=== PATIENT | female | born 1990 | race Caucasian/White ===

== ENCOUNTER 2018-09-16 08:02 | Emergency (ER) | payer OTHER ==
[~2018-09-16] VITALS: Ht 157.5 cm; Wt 72.7 kg
[2018-09-16] MEDS ORDERED: PREN-18 PO (08:09)
[2018-09-16 09:20] VITALS: BP 170/77
== END 2018-09-16 09:15 | disposition home or self-care (01) ==
LOC: EMS 08:04
DX: O26.891 Other specified pregnancy related conditions, first trimester (principal); L03.031 Cellulitis of right toe; Z3A.13 13 weeks gestation of pregnancy

== ENCOUNTER 2019-02-14 09:40 | Observation (INO) | payer OTHER ==
[~2019-02-14] VITALS: Ht 154.9 cm; Wt 82.6 kg
[~2019-02-14 09:40] MED LIST: PREN-18 PO
[2019-02-14 12:04] VITALS: BP 109/68
== END 2019-02-14 12:20 | disposition home or self-care (01) ==
LOC: 4S 09:40
PROVIDERS: ADMIT Obstetrics & Gynecology; ATTEND Obstetrics & Gynecology
DX: O26.893 Other specified pregnancy related conditions, third trimester (principal); R10.30 Lower abdominal pain, unspecified; Z3A.37 37 weeks gestation of pregnancy

== ENCOUNTER 2019-02-26 11:03 | Observation (INO) | payer OTHER ==
[~2019-02-26] VITALS: Ht 157.5 cm; Wt 81.6 kg
[2019-02-26 12:23] VITALS: BP 116/73
== END 2019-02-26 12:30 | disposition home or self-care (01) ==
LOC: 4S 11:03
PROVIDERS: ADMIT Obstetrics & Gynecology; ATTEND Obstetrics & Gynecology
DX: O36.8130 Decreased fetal movements, third trimester, not applicable or unspecified (principal); O48.0 Post-term pregnancy; Z3A.40 40 weeks gestation of pregnancy

== ENCOUNTER 2019-03-01 05:22 | Inpatient (IN) | payer OTHER ==
[~2019-03-01] VITALS: Ht 154.9 cm; Wt 82.6 kg
[2019-03-01 06:26] VITALS: BP 121/72
[2019-03-01] MEDS ORDERED: RINGERS SOLUTION,LACTATED 1,000 ML IV PRN (07:11)
[2019-03-01] MEDS ORDERED: OXYTOCIN 30 UNITS/LACT RINGERS 500 ML IV PRN (07:11)
[2019-03-01] MEDS ORDERED: RINGERS SOLUTION,LACTATED 1,000 ML IV SCH (07:11)
[2019-03-01] MEDS ORDERED: OXYTOCIN 30 UNITS/LACT RINGERS 500 ML IV ONE ×2 (07:11→10:31)
[2019-03-01] MEDS ORDERED: METOCLOPRAMIDE HCL 5 MG/ML 2 ML VIAL IVP PRN (07:15)
[2019-03-01] MEDS ORDERED: CITRIC ACID/SODIUM CITRATE 30 ML SOLUTION UDCUP PO PRN (07:15)
[2019-03-01 07:54] LABS: BASOPHILS % (AUTO) 0.3 % (0.0-2.0); HEMATOCRIT 40.6 % (36-46); HEMOGLOBIN 14.3 g/dL (12.0-16.0); LYMPHOCYTES # (AUTO) 2.1 K/uL (1.0-4.8); LYMPHOCYTES % (AUTO) 22.5 % (22.0-44.0); MEAN CORPUSCULAR HEMOGLOBIN 33.8 pg (26.0-34.0); MEAN CORPUSCULAR HGB CONC 35.3 G/dL (31.0-37.0); MEAN CORPUSCULAR VOLUME 96 fL (80-100); MONOCYTES # (AUTO) 0.9 K/uL (0.1-1.0); MONOCYTES % (AUTO) 9.3 % (2.0-9.0); NEUTROPHILS # (AUTO) 6.2 K/uL (1.8-7.7); NEUTROPHILS % (AUTO) 66.9 % (40.0-70.0); PLATELET COUNT (AUTO)-OB 123 K/uL (150-450); RED BLOOD CELL COUNT(AUTO) 4.23 MIL/uL (4.00-5.20); RED CELL DISTRIBUTION WIDTH 15.7 % (11.5-14.5)
[2019-03-01] MEDS ORDERED: OXYGEN THERAPY IH SCH (08:00)
[2019-03-01] MEDS ORDERED: LANOLIN 7 GM OINTMENT TP PRN (10:45)
[2019-03-01] MEDS ORDERED: MAGNESIUM HYDROXIDE SUSPENSION 30 ML UDCUP PO PRN (10:45)
[2019-03-01] MEDS ORDERED: BENZOCAINE 20%/MENTHOL 56 GM SPRAY CANISTER TP PRN (10:45)
[2019-03-01] MEDS ORDERED: OxyCODONE HCL/ACETAMINOPHEN 5-325 MG TABLET PO PRN ×2 (10:45)
[2019-03-01] MEDS ORDERED: GLYCERIN/WITCH HAZEL LEAF 40 PADS JAR TP PRN (10:45)
[2019-03-01] MEDS ORDERED: LIDOCAINE/PF 1% 30 ML VIAL INJ PRN (10:45)
[2019-03-01] MEDS ORDERED: MISOPROSTOL 100 MCG TABLET PR ONE (11:00)
[2019-03-01] MEDS: IBUPROFEN 800 MG TABLET PO PRN ×2 (11:22→21:18)
[2019-03-01] MEDS ORDERED: IBUP-2071 PO (16:20)
[2019-03-02] MEDS: IBUPROFEN 800 MG TABLET PO PRN (05:33)
[2019-03-02 05:38] LABS: BASOPHILS % (AUTO) 0.2 % (0.0-2.0); EOSINOPHILS % (AUTO) 0.9 % (1.0-6.0); HEMATOCRIT 31.5 % (36-46); HEMOGLOBIN 11.5 g/dL (12.0-16.0); LYMPHOCYTES # (AUTO) 2.2 K/uL (1.0-4.8); LYMPHOCYTES % (AUTO) 20.9 % (22.0-44.0); MEAN CORPUSCULAR HEMOGLOBIN 34.7 pg (26.0-34.0); MEAN CORPUSCULAR HGB CONC 36.4 G/dL (31.0-37.0); MEAN CORPUSCULAR VOLUME 95 fL (80-100); MONOCYTES # (AUTO) 1.1 K/uL (0.1-1.0); MONOCYTES % (AUTO) 10.6 % (2.0-9.0); NEUTROPHILS # (AUTO) 7.1 K/uL (1.8-7.7); NEUTROPHILS % (AUTO) 67.4 % (40.0-70.0); PLATELET COUNT (AUTO)-OB 121 K/uL (150-450); RED CELL DISTRIBUTION WIDTH 15.4 % (11.5-14.5)
[2019-03-02] MEDS ORDERED: IBUP-2071 PO (09:48)
[2019-03-02] MEDS ORDERED: DSS100 PO (09:48)
== END 2019-03-02 12:00 | disposition home or self-care (01) | DRG 560 ==
LOC: OBSVTOIN 05:22 → 4S 05:22
PROVIDERS: ADMIT Obstetrics & Gynecology; ATTEND Obstetrics & Gynecology
PROC: 10E0XZZ Delivery of Products of Conception, External Approach (ICD-10-PCS; principal; 2019-03-01)
PROC: 3E0R3BZ Introduction of Anesthetic Agent into Spinal Canal, Percutaneous Approach (ICD-10-PCS; 2019-03-01)
PROC: 00HU33Z Insertion of Infusion Device into Spinal Canal, Percutaneous Approach (ICD-10-PCS; 2019-03-01)
PROC: 0HQ9XZZ Repair Perineum Skin, External Approach (ICD-10-PCS; 2019-03-01)
DX: O69.81X0 Labor and delivery complicated by cord around neck, without compression, not applicable or unspecified (principal); O70.0 First degree perineal laceration during delivery; O77.0 Labor and delivery complicated by meconium in amniotic fluid; Z37.0 Single live birth; Z3A.39 39 weeks gestation of pregnancy
CPT/HCPCS: 86850; 86900; 86901; J2590; J7120

== ENCOUNTER 2025-01-04 21:42 | Emergency (ER) | payer OTHER ==
[~2025-01-04] VITALS: Ht 152.4 cm; Wt 68.6 kg
[~2025-01-04 21:42] MED LIST changes: +DSS100 PO; +IBUP-1493 PO
[2025-01-04 21:52] VITALS: BP 138/91; PULSE 100; RESP 16; TEMP 97.9; O2SAT 98
== END 2025-01-05 02:10 | disposition left against medical advice (07) ==
LOC: EMS 21:42
DX: M79.646 Pain in unspecified finger(s) (principal); Z53.21 Procedure and treatment not carried out due to patient leaving prior to being seen by health care provider
CPT/HCPCS: 73130-TC